=== PATIENT | female | born 2005 | race Caucasian/White ===

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

== ENCOUNTER → 2023-04-14 | Outpatient (REF) | payer OTHER | LOC: M LAB REF 21:10 | PROVIDERS: ATTEND Physician Assistant | DX: B34.9 Viral infection, unspecified (principal) ==

== ENCOUNTER → 2023-10-17 | Outpatient (REF) | payer OTHER | LOC: M SFHCWAGY 13:19 | PROVIDERS: ATTEND Specialist | DX: Z12.4 Encounter for screening for malignant neoplasm of cervix (principal) ==

== ENCOUNTER → 2024-01-27 | Outpatient (REF) | payer OTHER ==
[2024-01-27 18:17] LABS: URINE PREG TEST NEGATIVE (NEGATIVE)
[2024-01-27 18:20] LABS: AMORPHOUS SEDIMENT MODERATE (NEGATIVE); APPEARANCE, URINE TURBID (CLEAR); BACTERIA, URINE AUTO NEGATIVE (NEGATIVE); BILIRUBIN, URINE AUTO NEGATIVE (NEGATIVE); BLOOD, URINE BLOOD NEGATIVE (NEGATIVE); COLOR, URINE AMBER (YELLOW); GLUCOSE, URINE (UA) AUTO NEGATIVE (NEGATIVE); KETONE, URINE AUTO 1+ mg/dL (NEGATIVE); LEUKOCYTE ESTERASE, URINE AUTO NEGATIVE (NEGATIVE); MUCUS, URINE LARGE (NEGATIVE); NITRITE, URINE AUTO NEGATIVE (NEGATIVE); PROTEIN, URINE AUTO 1+ mg/dL (NEGATIVE); RBC, URINE AUTO 0 /HPF (0-3); SPECIFIC GRAVITY URINE AUTO 1.027 (1.002-1.035); SQUAMOUS EPITHELIAL CELL UR AU 3 /HPF (0-6); UROBILINOGEN, URINE AUTO 0.2 mg/dL (0.0-2.0); WBC, URINE AUTO 0 /HPF (0-3)
[2024-01-27 20:14] LABS: Trichomonas vaginalis (AMP) NOT DETECTED (NEGATIVE)
[2024-01-27 20:37] LABS: GC DNA AMPLIFICATION NEGATIVE (NEGATIVE)
== END ==
LOC: M LAB REF 17:47
PROVIDERS: ATTEND Physician Assistant Medical
DX: N39.0 Urinary tract infection, site not specified (principal)

== ENCOUNTER 2025-06-10 17:46 | Inpatient (IN) | payer OTHER ==
[~2025-06-10] VITALS: Ht 149.9 cm; Wt 51.8 kg
[2025-06-10 18:48] VITALS: BP 100/60
[2025-06-10] MEDS: BETAMETHASONE SOLUSPAN 6 MG/ML 5 ML VIAL IM SCH (20:43)
[2025-06-10] MEDS ORDERED: TRANEXAMIC ACID INJection 1,000 MG in NS 100 ML IV PRN (23:20)
[2025-06-10] MEDS ORDERED: OXYTOCIN DRIP 30 UNITS in IV 1 EA IV PRN (23:20)
[2025-06-10] MEDS ORDERED: METHYLERGONOVINE MALEATE 0.2 MG/ML 1 ML VIAL IM PRN (23:20)
[2025-06-10] MEDS ORDERED: CARBOPROST TROMETHAMINE 250 MCG/ML AMP IM PRN (23:20)
[2025-06-10] MEDS ORDERED: OXYTOCIN INJ 10UNITS/ML 1ML VIAL IM PRN (23:20)
[2025-06-10] MEDS ORDERED: CALCIUM GLUCONATE 1,000 MG in DEXTROSE 5% (D5W) MINI-BAG PLU 100 ML IV PRN (23:20)
[2025-06-10] MEDS ORDERED: DOCUSATE SODIUM 100 MG CAPSULE PO PRN (23:20)
[2025-06-10] MEDS ORDERED: LIDOCAINE 1% MDV 20 ML VIAL INFIL PRN (23:20)
[2025-06-10] MEDS: PENICILLIN G POTASSIUM 5 MU IV 5 MU in DEXTROSE 5% (D5W) MINI-BAG PLU 100 ML IV STA (23:43)
[2025-06-10] MEDS: MAG Sulf (L&D) 4 GM/100 ML 4 GM in IV 1 EA IV ONE (23:43)
[2025-06-10 23:54] VITALS: BP 108/58
[2025-06-10 23:55] VITALS: BP 108/58
[2025-06-10] MEDS: NIFEdipine 10 MG CAP PO ONE (23:55)
[2025-06-11] VITALS (11 sets, daily range): BP systolic 91–111; BP diastolic 52–68; O2SAT 99–100
[2025-06-11 00:18] LABS: PLATELET COUNT, AUTOMATED 256 10^3/uL (150-450)
[2025-06-11] MEDS: MAG Sulf (OBGYN) 20GM/500ML 20,000 MG in IV 1 EA IV SCH (00:23)
[2025-06-11] MEDS: ONDANSETRON 4MG/2ML VIAL IV PRN (00:26)
[2025-06-11 00:58] LABS: HIV 1&2 SCREEN NEGATIVE (NEGATIVE)
[2025-06-11 01:06] LABS: HEPATITIS C VIRUS ABY INDEX 0.04 INDEX (<0.8)
[2025-06-11] MEDS: PEN G POT 3,000,000 UNIT/50 ML 3,000,000 UNIT in IV 1 EA IV SCH (03:56)
[2025-06-11] MEDS: PRENATAL VITAMINS CHEWABLE TABLET PO SCH (09:11)
[2025-06-11] MEDS: LR 1,000 ML IV SCH (09:42)
[2025-06-11 14:23] LABS: GC DNA AMPLIFICATION NEGATIVE (NEGATIVE)
[2025-06-12 07:56] VITALS: BP 99/64
[2025-06-12 07:57] VITALS: O2SAT 98
[2025-06-12 08:58] VITALS: BP 109/61
== END 2025-06-12 09:40 | disposition home or self-care (01) | DRG 563 ==
LOC: M LDO 17:46 → M OBS 23:19 → M LDI 06-11 01:21 → UNDOADMIN 06-11 01:21 → UNDODISIN 06-12 09:40 → M LDO 06-12 09:40
PROVIDERS: ADMIT Advanced Practice Midwife; ATTEND Advanced Practice Midwife
DX: O60.03 Preterm labor without delivery, third trimester (principal); O99.353 Diseases of the nervous system complicating pregnancy, third trimester; F17.210 Nicotine dependence, cigarettes, uncomplicated; O99.333 Smoking (tobacco) complicating pregnancy, third trimester; Z3A.31 31 weeks gestation of pregnancy; O99.613 Diseases of the digestive system complicating pregnancy, third trimester; K21.9 Gastro-esophageal reflux disease without esophagitis; G47.00 Insomnia, unspecified; Z79.2 Long term (current) use of antibiotics